=== PATIENT | female | born 1995 | race Caucasian/White ===

== ENCOUNTER 2022-10-31 23:11 | Emergency (ER) | payer OTHER, MEDICAID, SELFPAY ==
[2022-10-31 23:15] VITALS: BP 146/83; PULSE 88; RESP 18; TEMP 36.1; O2SAT 98; BMI 29.3
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
--- NOTE | 2022-11-03 08:05 | ED.GENADULT ---
HPI - General Adult General Date Seen: 11/03/22 Chief complaint: Skin/Abscess/Foreign Body Stated complaint: swollen right index finger Time Seen by Provider: 10/31/22 23:26 Source: patient Mode of arrival: ambulatory Limitations: no limitations History of Present Illness HPI narrative: Patient is a 19-year-old here for evaluation of swelling and redness along the edge of her nail on her right index finger. She says it has been like this for a couple of weeks, getting gradually worse. She does not complain of any pain but she says she historically does not seem to feel pain in the same without other people do. There has not been any drainage, denies any trauma. No systemic symptoms. Related Data Home Medications Medication Instructions Recorded Confirmed No Known Home Medications 10/31/22 10/31/22 Allergies Allergy/AdvReac Type Severity Reaction Status Date / Time No Known Drug Allergies Allergy Verified 10/31/22 23:19 Review of Systems Status of ROS: Reports: 6 or more systems reviewed and unremarkable except as noted in History and below PFSH PFSH Social History Smoking Status: Never smoker Do you use any of these nicotine containing products: None How often do you have a drink containing alcohol: monthly or less How often do you have six or more drinks on one occasion: Never AUDIT-C Alcohol total score: 1 Non-prescribed substance use: denies use Exam Narrative: Exam Narrative: Vital signs reviewed General: Alert, well-appearing. Extremities: Examination of the right index finger shows swelling and erythema consistent with a paronychia. I do not see any purulent fluid at this time. Mild surrounding erythema. Remainder of the hand is normal. Skin: Warm dry and otherwise well perfused intact. Const: Documenting provider has reviewed patient's vital signs: yes Course Course Hospital Course: At this time I do not see anything to incise. Recommend that we start on antibiotics and see how she does over the next day or 2. Discussed reasons to return including significant worsening redness or swelling, new symptoms such as fever, or if she notices a collection of pus. Vital Signs Vital signs: Initial Vital Signs Temperature 97 F L 10/31/22 23:15 Temperature Source Temporal Artery Scan 10/31/22 23:15 Pulse Rate 88 10/31/22 23:15 Respiratory Rate 18 10/31/22 23:15 Blood Pressure 146/83 H 10/31/22 23:15 Blood Pressure Mean 104 10/31/22 23:15 Blood Pressure Position Supine 10/31/22 23:15 Pulse Oximetry 98 10/31/22 23:15 Oxygen Delivery Method Room Air 10/31/22 23:15 Vital Signs Temperature 97 F L 10/31/22 23:15 Pulse Rate 88 10/31/22 23:15 Respiratory Rate 18 10/31/22 23:15 Blood Pressure 146/83 H 10/31/22 23:15 Pulse Oximetry 98 10/31/22 23:15 Oxygen Delivery Method Room Air 10/31/22 23:15 Temperature 97 F L 10/31/22 23:15 Pulse Rate 88 10/31/22 23:15 Respiratory Rate 18 10/31/22 23:15 Blood Pressure 146/83 H 10/31/22 23:15 Pulse Oximetry 98 10/31/22 23:15 Oxygen Delivery Method Room Air 10/31/22 23:15 Discharge Plan Discharge Clinical Impression: Paronychia of finger Patient Disposition: Home, Self-Care Condition: Stable Instructions: Paronychia (ED) Additional Instructions: Antibiotic as prescribed. Warm soaks 5 minutes 3 times daily. If you have worsening redness, swelling, notice accumulation of pus, or new symptoms such as fever, return to the emergency department. See primary care if not improved with antibiotics. Prescriptions: No Action No Known Home Medications Stand Alone Forms: [employer] Info Instructions
== END 2022-10-31 23:45 | disposition home or self-care (01) ==
LOC: ED 23:41
PROVIDERS: Emergency Provider Emergency Medicine
DX: L03.011 Cellulitis of right finger (principal)
CPT/HCPCS: 99283